=== PATIENT | female | born 1955 ===

== ENCOUNTER 2023-05-26 10:54 | Outpatient (CLI) | payer OTHER | END 2023-05-26 10:56 | disposition home or self-care (01) | LOC: SONOGRAMA 10:54 | PROVIDERS: ATTEND Pathology Anatomic Pathology & Clinical Pathology | DX: D44.0 Neoplasm of uncertain behavior of thyroid gland (principal); D34 Benign neoplasm of thyroid gland; E04.9 Nontoxic goiter, unspecified; E07.9 Disorder of thyroid, unspecified ==

== ENCOUNTER 2023-12-22 09:51 | Outpatient (CLI) | payer OTHER | END 2023-12-22 09:54 | disposition home or self-care (01) | LOC: SONOGRAMA 09:51 | PROVIDERS: ATTEND Pathology Anatomic Pathology & Clinical Pathology | DX: D44.0 Neoplasm of uncertain behavior of thyroid gland (principal); E04.2 Nontoxic multinodular goiter ==